=== PATIENT | female | born 1985 | race American Indian/Alaskan Native ===

== ENCOUNTER 2016-09-23 23:48 | Emergency (ER) | payer MEDICAID ==
[2016-09-24] MEDS ORDERED: PERCOCET 5/325 PO ONE ×2 (16:40→22:25)
[2016-09-24] MEDS ORDERED: KEPPRA PO ONE (16:41)
--- NOTE | 2016-09-24 16:43 | Emergency Department Report ---
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 The patient states that she had a episode where she had palpitations and she nearly passed out and did hit her head but did not have any nausea or vomiting. Has not been able to fill out her Keppra that she was prescribed 2 days ago at [facility]. At that time she was there because she had had a seizure episode and had a laceration to the upper lip as well as fracture of multiple teeth from a fall. Severity scale (0 -10): 9 - Related Data Previous Rx's Medication Instructions Recorded Last Taken Type Ibuprofen [Motrin] 600 mg PO Q8H PRN #15 tablet 09/24/16 Unknown Rx Magnesium Oxide [Magnesium] 500 mg PO DAILY #5 capsule 09/24/16 Unknown Rx oxyCODONE /ACETAMINOPHEN [Percocet 1 tab PO Q6HR PRN #8 tablet 09/24/16 Unknown Rx 5/325] Allergies Allergy/AdvReac Type Severity Reaction Status Date / Time No Known Allergies Allergy Verified 09/24/16 00:24 ED Review of Systems ROS: Stated complaint: DIZZINESS Other details as noted in HPI Comment: All other systems reviewed and negative Constitutional: denies: chills, fever Eyes: denies: eye pain ENT: dental pain Respiratory: denies: cough, shortness of breath Cardiovascular: denies: chest pain Gastrointestinal: denies: abdominal pain Skin: denies: rash ED Past Medical Hx - Medications Home Medications: Home Medications Medication Instructions Recorded Confirmed Last Taken Type Ibuprofen [Motrin] 600 mg PO Q8H PRN #15 tablet 09/24/16 Unknown Rx Magnesium Oxide [Magnesium] 500 mg PO DAILY #5 capsule 09/24/16 Unknown Rx oxyCODONE /ACETAMINOPHEN [Percocet 1 tab PO Q6HR PRN #8 tablet 09/24/16 Unknown Rx 5/325] ED Physical Exam - General Limitations: No Limitations - Head Head exam: Present: other (laceration healing to upper lip, multiple upper front teeth with wire in place, mild tenderness to the right temporal area, no hematoma or laceration appreciated) - Eye Eye exam: Present: normal appearance - Respiratory Respiratory exam: Present: normal lung sounds bilaterally. Absent: respiratory distress - Cardiovascular Cardiovascular Exam: Present: regular rate, normal heart sounds - GI/Abdominal GI/Abdominal exam: Absent: soft, tenderness - Neurological Exam Neurological exam: Present: alert, oriented X3, CN II-XII intact. Absent: motor sensory deficit - Psychiatric Psychiatric exam: Present: normal affect - Skin Skin exam: Absent: rash ED Course Vital Signs 09/24/16 09/24/16 00:14 11:48 Temperature 98.9 F 98.2 F Pulse Rate 81 76 Respiratory 18 16 Rate Blood Pressure 122/80 Blood Pressure 126/86 [Right] O2 Sat by Pulse 100 100 Oximetry - Reevaluation(s) Reevaluation #1: 09/24/16 23:46 Reassessed. Has not had any seizure-like activity while being in the department. His culture is also patient including low magnesium. I discussed with the patient the importance of taking the Keppra prescription that she has as well as the magnesium prescription that I will give her. Explained to not drive when she is taking the Percocet for the pain. She also has a compliance review specialist she is planning to follow up with. Chest discharging home. Patient is comfortable with the plan. ED Medical Decision Making - Lab Data Result diagrams: 09/24/16 16:56 09/24/16 16:56 - Medical Decision Making syncope vs seizure keppra, percocet, labs, ekg Labs show hypomagnesemia. IV magnesium ordered. EKG here shows normal sinus rhythm without any ST-T changes. QTC of 440. There is no signs of WPW. ND is normal at 198, no delta waves appreciated, narrow QRS, no signs of Brugada pattern. Critical care attestation.: If time is entered above; I have spent that time in minutes in the direct care of this critically ill patient, excluding procedure time. ED Disposition Clinical Impression: Hypomagnesemia, Breakthrough seizure, Noncompliance with medication regimen Disposition: DISCHARGED TO HOME OR SELFCARE Is pt being admited?: No Does the pt Need Aspirin: No Condition: Stable Instructions: Epilepsy (ED) Additional Instructions: Follow-up with her primary care doctor, neurologist and compliance review specialist the next 3- 5 days. Return to the emergency room if you have another seizure episode, palpitations or any new symptoms. Please make sure to take her Keppra as prescribed. Do not drive while taking Percocet. Prescriptions: Magnesium Oxide [Magnesium] 500 mg PO DAILY #5 capsule Ibuprofen [Motrin] 600 mg PO Q8H PRN #15 tablet PRN Reason: Pain oxyCODONE /ACETAMINOPHEN [Percocet 5/325] 1 tab PO Q6HR PRN #8 tablet PRN Reason: Pain
[2016-09-24 17:34] LABS: Basophils % (Auto) 0.7 % (0.0-1.8); Eosinophils % (Auto) 1.9 % (0.0-4.3); Hematocrit 28.6 % (30.3-42.9); Hemoglobin 9.9 gm/dl (10.1-14.3); Mean Corpuscular HGB Conc 35 % (30-34); Mean Corpuscular Hemoglobin 33 pg (28-32); Mean Corpuscular Volume 96 fl (79-97); Platelet Count 251 K/mm3 (140-440); Red Blood Count 2.99 M/mm3 (3.65-5.03); Red Cell Distribution Width 15.1 % (13.2-15.2); White Blood Count 4.3 K/mm3 (4.5-11.0)
[2016-09-24 17:36] LABS: Anion Gap 18 mmol/L; Blood Urea Nitrogen 5 mg/dL (7-17); Calcium 9.1 mg/dL (8.4-10.2); Carbon Dioxide 25 mmol/L (22-30); Chloride 100.7 mmol/L (98-107); Glucose 97 mg/dL (65-100); Magnesium 1.5 mg/dL (1.7-2.3); Phosphorous 3.9 mg/dL (2.5-4.5); Sodium 140 mmol/L (137-145)
[2016-09-24] MEDS ORDERED: MAGNESIUM SULFATE 2GM/50ML 50 ML IV ONE ×2 (17:38→21:30)
[2016-09-24] MEDS ORDERED: MOTRIN PO ONE (23:46)
[2016-09-25 01:12] VITALS: BP 126/84
== END 2016-09-25 01:18 | disposition home or self-care (01) ==
LOC: ED 23:48
DX: G40.909 Epilepsy, unspecified, not intractable, without status epilepticus (principal); E83.42 Hypomagnesemia; Z91.14 Patient's other noncompliance with medication regimen
CPT/HCPCS: 36415; 80048; 81025; 83735; 84100; 85025; 93005; 93010; 96365; 99284; J3475